=== PATIENT | female | born 1975 | race Caucasian/White ===

== ENCOUNTER 2019-09-17 08:05 | Outpatient (CLI) | payer OTHER, SELFPAY ==
--- NOTE | ~2019-09-17 | MM_ITS ---
EXAMINATION: MM screening [facility] w abhilash HISTORY: Screening TECHNIQUE: Craniocaudal and mediolateral oblique 3-D tomosynthesis images were obtained and synthetic 2-D images were generated. CAD analysis was submitted and interpreted. COMPARISON: Comparison to multiple prior studies sequentially, with oldest reviewed study dated 11/24. BREAST PARENCHYMAL COMPOSITION: There are scattered areas of fibroglandular density. FINDINGS: There is no evidence of suspicious mass, calcification, or architectural distortion to sugg est malignancy in either breast. There has been no suspicious interval change. IMPRESSION: 1. No mammographic evidence of malignancy. 2. Recommend routine screening mammography in one year. BI-RADS Category 1: Negative Reviewed, dictated and finalized at location A.
== END 2019-09-17 08:06 | disposition home or self-care (01) ==
PROVIDERS: PCP Family Medicine; Visit Provider Obstetrics & Gynecology
DX: Z12.31 Encounter for screening mammogram for malignant neoplasm of breast (principal)
CPT/HCPCS: 77063; 77067

== ENCOUNTER 2020-09-22 08:26 | Outpatient (CLI) | payer OTHER, SELFPAY ==
--- NOTE | ~2020-09-22 | MM_ITS ---
EXAMINATION: MM screening [facility] w abhilash HISTORY: Screening mammogram TECHNIQUE: Craniocaudal and mediolateral oblique 3-D tomosynthesis images were obtained and synthetic 2-D images were generated. CAD analysis was submitted and interpreted. COMPARISON: 09/13/2019, 06/12/2018, 12/03/2016 bilateral digital screening mammogram examinations 12/20/2016 diagnostic right digital mammogram BREAST PARENCHYMAL COMPOSITION: There are scattered areas of fibroglandular density. FINDINGS: There is no evidence of suspicious mass, calcification, or architectural distortion to sugg est malignancy in either breast. There has been no suspicious interval change. IMPRESSION: 1. No mammographic evidence of malignancy. 2. Recommend routine screening mammography in one year. BI-RADS Category 1: Negative Reviewed, dictated and finalized at location A.
== END 2020-09-22 08:27 | disposition home or self-care (01) ==
LOC: ANHIMG 08:29
PROVIDERS: PCP Family Medicine; Visit Provider Obstetrics & Gynecology
DX: Z12.31 Encounter for screening mammogram for malignant neoplasm of breast (principal)
CPT/HCPCS: 77063; 77067

== ENCOUNTER 2023-02-12 13:42 | Outpatient (CLI) | payer OTHER, SELFPAY ==
--- NOTE | ~2023-02-12 | MM_ITS ---
EXAMINATION: MM screening [facility] w abhilash HISTORY: Screening mammogram TECHNIQUE: Craniocaudal and mediolateral oblique 3-D tomosynthesis images were obtained and synthetic 2-D images were generated. CAD analysis was submitted and interpreted. COMPARISON: 09/22/2020, 09/13/2019, 06/12/2018 bilateral screening mammogram examinations BREAST PARENCHYMAL COMPOSITION: There are scattered areas of fibroglandular density. FINDINGS: There is no evidence of suspicious mass, calcification, or architectural distortion to sugg est malignancy in either breast. There has been no suspicious interval change. IMPRESSION: 1. No mammographic evidence of malignancy. 2. Recommend routine screening mammography in one year. BI-RADS Category 1: Negative Reviewed, dictated and finalized at location A. [employer]
== END 2023-02-12 13:43 | disposition home or self-care (01) ==
LOC: ANHIMG 13:44
PROVIDERS: PCP Family Medicine; Visit Provider Family Medicine
DX: Z12.31 Encounter for screening mammogram for malignant neoplasm of breast (principal)
CPT/HCPCS: 77063; 77067

== ENCOUNTER 2025-01-12 09:00 | Outpatient (CLI) | payer OTHER, SELFPAY ==
--- NOTE | ~2025-01-12 | MM_ITS ---
EXAMINATION: MM screening albertina BI w abhilash HISTORY: Screening TECHNIQUE: Craniocaudal and mediolateral oblique 3-D tomosynthesis images were obtained and synthetic 2-D images were generated. CAD analysis was submitted and interpreted. COMPARISON: Comparison to multiple prior studies sequentially, with oldest reviewed study dated 12/03/2016. BREAST PARENCHYMAL COMPOSITION: Not dense: There are scattered areas of fibroglandular density. FINDINGS: There is no evidence of suspicious mass, calcification, or architectural distortion to suggest malignancy in either breast. There has been no suspicious interval change. IMPRESSION: 1. No mammographic evidence of malignancy. 2. Recommend routine screening mammography in one year. BI-RADS Category 1: Negative Reviewed, dictated and finalized at location [facility] [employer] [facility]
--- OUTSIDE RECORDS SUMMARY | 2025-01-12 11:25 | XMS_ITS | Data Portability ---
Author Organization [facility] Address [address] [place] [address] [place] [address] Assessment Encounter Date Assessment Date Assessment LastModified by Organization Details LastModified Time 08/11/2024 08/11/2024 Annual gynecological exam performed. Patient will come back in a year unless there are new symptoms. [email or web address] Not available 08/11/2024 11:54:07 Plan of Treatment Reminders Order Date Submit Date Provider Last Modified By Organization Details Last Modified Time Details Appointments None recorded. Lab pap, IG + HR HPV - HPV regardless but if HPV is positive need subtyping 16,18/45 2024 025 [facility] (Lab), [address], [place], [address], 5 18:07:14 Referral None recorded. Procedures None recorded. Surgeries None recorded. Imaging MAMMO, screening, digital, bilateral [address] [facility], [address], [address], [place], [address], 5 10:40:36 Medication Orders None recorded. Patient TargetsNo targets recorded. Patient InstructionsNo instructions recorded. Reason for Referral None Reported. Results Created Date Observation Date Name Description Value Unit Range Abnormal Flag Note LastModifiedBy Organization Detail LastModifiedTime 08/12/1908/11/2024 IMAGE GUIDE D PAP AND HPV REGAR DLESS image guided Pap, HPV regardless of Pap result SEE RESULT S BELOW CASE REPOR T: Cytol ogy Gynec ologi elsi Repor t Case: [id number] Autho landon elizabet Provi shauna: Dermo dy, Ursula , ANP, COMBINATION MAN Colle cted: 08/11 1144 Order ing Locat ion: [place] [facility] Recei ramone: 08/12 0223 First Barbara n: Joellen Reyes Speci men: Screromeo atkins Pap - Image d, Cervi x STATE MENT OF ADEQU ACY: Satis facto ry for evalu ation Trans forma tion zone compo nent prese nt ----- ----- ----- ----- ----- ----- ----- ----- ----- ----- ----- ----- ----- ----- ----- ----- ----- ---- FINAL DIAGN OSIS: Negat paula for Intra epith elial Ofe [place] or Maureen henry (NIL) . Elect tatiana rudolph by Joellen Reyes on 2024 at 1702 CDT ----- ----- ----- ----- ----- ----- ----- ----- ----- ----- ----- ----- ----- ----- ----- ----- ----- ---- HPV RESUL TS: HPV mRNA E6/E7 : No HPV mRNA Detec mylene NOTE: This high risk HPV mRNA assay detec ts fourt een high- risk HPV types (16, 18, 31, 33, 35, 39, 45, 51, 52, 56, 58, 59, 66, 68) witho ut diffe renti ation . COMME NT: This speci men was revie wed by a Cytot echno logis t and/o r Patho logis t (as indic ated in this repor t) after evalu ation using the Thinp rep Imagi ng Syste m. CLINI ELSI INFOR MATIO N: Menst rual Statu s: LMP (if appli cable ): Clini elsi Histo ry/Pr eviou s Pap: Type of Neopl [place]ol[place] (if appli cable ): Signi fican t Clini elsi Findi ngs: Other Histo ry: Hormo daryl (if appli cable ): PAP EDUCA HEATHER L NOTE: The Pap Test is a scree wilbert test with an inher ent false negat paula rate. Liqui d-bas ed sampl ing may decre ase, but will not elimi aaron, false negat paula resul ts. A negat paula resul t does not precl ude the prese nce and/o r devel opmen t of disea se, since the prese nce of abnor mal cells in the sampl e depen ds on the locat ion of the lesio n and sampl ing techn ique. Adelina nued regul ar scree wilbert is the best metho d of cance r preve ntion . If repor mylene cytol ogic findi ng do not corre late with physi elsi and/o r histo rical findi ngs, furth er inves tigat ion is recom ashley d, as clini jaime warra nted. Not Available [facility] (Lab) [address] [facility], [place], [address], 08/12/2024 18:07:14 Result Notes None recorded. 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;Recorded Elsewhere: No Locatio n: [facility] rce: EHR Chroni c: N Practice ID: [id number] Billa ble Time: 08:15:00 AM Not Available [facility] 0 17:01:00 Menstruat ion finding Active 2013 Menorrhagi a;Recorded Elsewhere: No Locatio n: [facility] rce: EHR Chroni c: N Practice ID: [id number] Billa ble Time: 08:15:00 AM Not Available [facility] 0 17:01:01 test negative [id number] Active 2013 examinatio n or test, negative result;Rec orded Elsewhere: No Locatio n: [facility] rce: EHR Chroni c: N Practice ID: [id number] Billa ble Time: 10:30:00 AM Not Available [facility] 0 17:01:00 Dysfuncti onal uterine bleeding Active 2013 Unspecifie d disorders of menstruati on and other abnormal bleeding from female genital tract;Mario rded Elsewhere: No Locatio n: [facility] rce: EHR Chroni c: N Practice ID: 0001 Billa ble Time: 04:00:00 PM Not Available [facility] 0 17:01:01 Uses IUD (intraute rine device) contracep tion [id number] Active 2013 Surveillan ce of intrauteri ne contracept paula device;Rec orded Elsewhere: No Locatio n: [facility] rce: EHR Chroni c: N Practice ID: 0001 Billa ble Time: 04:00:00 PM Not Available [facility] 0 17:01:01 Screening for malignant neoplasm of rectum Active 2016 Encounter for screening for malignant neoplasm of rectum;Rec orded Elsewhere: No Locatio n: [facility] rce: EHR Chroni c: N Practice ID: 0001 Billa ble Time: 01:00:00 PM Not Available [facility] 0 17:01:[address] Concept Active 2016 Encntr for general adult medical exam w/o abnormal findings;R ecorded Elsewhere: No Locatio n: [facility] rce: EHR Chroni c: N Practice ID: [id number] Billa ble Time: 01:00:00 PM Not Available [facility] 0 17:01:[address] Concept Active 2016 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) w/o abn findings;R ecorded Elsewhere: No Locatio n: [facility] rce: EHR Chroni c: N Practice ID: [id number] Billa ble Time: 01:00:00 PM Not Available [facility] 0 17:01:01 Evaluatio n finding Active 2016 Oth abn and inconclusi ve findings on dx imaging of breast;Rec orded Elsewhere: No Locatio n: [facility] rce: EHR Chroni c: N Practice ID: 0001 Billa ble Time: 09:05:51 AM Not Available [facility] 0 17:01:00 Removal of intrauter ine device Active 2018 Encounter for removal of intrauteri ne contracept paula device;Rec orded Elsewhere: No Locatio n: [facility] rce: EHR Chroni c: N Practice ID: 0001 Billa ble Time: 03:00:00 PM Not Available [facility] 0 17:01:01 Insertion of intrauter ine contracep tive device Active 2018 Encounter for insertion of intrauteri ne contracept paula device;Rec orded Elsewhere: No Locatio n: [facility] rce: EHR Chroni c: N Practice ID: 0001 Billa ble Time: 02:00:00 PM Not Available [facility] 0 17:01:00 Contracep tive sheath status [id number] Active 2018 Encounter for routine checking of IUD;Record ed Elsewhere: No Locatio n: [facility] rce: EHR Chroni c: N Practice ID: 0001 Billa ble Time: 09:15:00 AM Not Available [facility] 0 17:01:00 Problem Notes None recorded. Procedures Surgical History Date Name Laterality Status Provider Name and Address Organization Details Recorded Time 4 Colonoscopy completed [facility] 08/11/2024 12:03:05 8 Tubal Ligation completed [facility] 08/11/2024 12:03:22 Imaging Results None recorded. Procedure Notes None recorded. Medical Equipment None Reported. Allergies No known drug allergies Medications Name Sig Start Date Stop Date Status Note LastModified by Organization Details LastModified Time amoxicill in 500 mg capsule TAKE 1 CAPSULE BY MOUTH TWICE A DAY FOR 10 DAYS 08/11 completed Not Available Not Available Not Available Mirena 21 mcg/24 hr (up to 8 years) 52 mg intrauter ine device insert 1 kit by vaginal route every 1 for 5 months 2024 active Prescrib ed Elsewher e: No Locat ion: [facility] By: jacobo Roldan ncounter DateTime : 06/03/19 19 12:04:37 PM Not Available Not Available Not Available atorvasta tin 20 mg tablet TAKE 1 TABLET BY MOUTH EVERY DAY active Not Available Not Available No t Available lisinopri l 10 mg-hydroc hlorothia zide 12.5 mg tablet TAKE 1 TABLET BY MOUTH EVERY DAY active Not Available Not Available No t Available albuterol sulfate HFA 90 mcg/actua tion aerosol inhaler INHALE 2 PUFFS EVERY 6 HOURS NEEDED FOR SHORTNES S OF BREATH. 08/11 completed Not Available Not Available Not Available Vitamin D2 1,250 mcg (50,000 unit) capsule take 1 capsule (20558IJ ITS) by oral route every week 09/02 completed Prescrib ed Elsewher e: No Locat ion: [facility] By: deb Roldan ncounter DateTime : 06/10/19 13 10:25:49 AM Not Available Not Available Not Available timolol maleate 0.5 % eye drops INSTILL ONE DROP IN BOTH EYES TWICE DAILY (12 HRS APART) active Not Available Not Available No t Available Vitals Date Recorded Body height Body mass index (BMI) Body weight Systolic And Diastolic Provider Name and Address Organization Details Last Updated DateTime 08/11/2024 162.56 cm 43.5 kg/m2 962823.03 g 124/87 mm[Hg] Rosie Mcwilliams [facility] 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 08/11/2024 12:02:41 Are You Blind Or Do You Have Difficulty Seeing? No [email or web address] Information n ot available 08/11/2024 What Is Your Level Of Caffeine Consumption? Occasional [email or web address] Information not available 08/11/2024 How Much Tobacco Do You Chew? None [email or web address] Information not available 08/11/2024 In The 14 Days Before Symptom Onset, Have You Had Close Contact With A Laboratory-confirm ed COVID-19 While That Case Was Ill? No [email or web address] Information n ot available 08/11/2024 In The 14 Days Before Symptom Onset, Have You Had Close Contact With A Person Who Is Under Investigation For COVID-19 While That Person Was Ill? No [email or web address] Information not available 08/11/2024 Have You Been To An Area Known To Be High Risk For COVID-19? No [email or web address] Information not available 08/11/2024 Are You Deaf Or Do You Have Serious Difficulty Hearing? No [email or web address] Information not available 08/11/2024 What Type Of Diet Are You Following? REGULAR [email or web address] Information n ot available 08/11/2024 What Is The Highest Grade Or Level Of School You Have Completed Or The Highest Degree You Have Received? [id number] [email or web address] Information not available 08/11/2024 Are There Any Guns Present In Your Home? Yes [email or web address] Information not available 08/11/2024 Do You Use Protection During Sex? No Information not available 08/11/2024 Do You Use Your Seat Belt Or Car Seat Routinely? Yes [email or web address] Information not available 08/11/2024 Are You Sexually Active? Yes [email or web address] Information not available 08/11/2024 Do You Have Smoke And Carbon Monoxide Detectors In Your Home? Yes Information not available 08/11/2024 How Much Tobacco Do You Smoke? No [email or web address] Information not available 08/11/2024 Do You Use Sunscreen Routinely? No Information not available 08/11/2024 Have You Used IV Drugs? No [email or web address] Information not available 08/11/2024 Do You Have Difficulty Walking Or Climbing Stairs? No [email or web address] Information not available 08/11/2024 Sex: Unknown Functional Status Question Answer Note LastModified by Organizat ion Details LastModified Time Do you use any illicit or recreational drugs? No [email or web address] Information not available 08/11/2024 What is your level of alcohol consumption? Occasional [email or web address] Information not available 08/11/2024 Are you currently employed? Yes Information not available 08/11/2024 Are you able to walk independently without assistance or assistive devices? YESWOREST [email or web address] Information not available 08/11/2024 Are you able to care for yourself independently? 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 No [email or web address] Information not available 08/11/2024 What is your exercise level? Occasional Information not available 08/11/2024 Mental Status Question Answer Note LastModified by Organization D etails LastModified Time Do you feel stressed (tense, restless, nervous, or anxious, or unable to sleep at night)? [id number] [email or web address] Information not available 08/11/2024 Family History Relationship Description Onset Age of this Age Resolved Age Notes LastModified by Organization Details LastModified Time Mother Malignant neoplasm of uterus Not available 2024 12:02:29 Medical History Condition Response Allergies (Food, seasonal, environmental ) N Other N Breast Cancer N Drug/Latex Allergies/Reactions N Blood Transfusion N Dermatologic Disorders N Lung Disease N Defects or Inherited Disease N Breast Problem N Gestational Diabetes N Hematologic disorders N Anesthesia Complications N History of STI N Deep Vein Thrombosis N Polycystic ovary syndrome N Anxiety Disorder N Autoimmune disease N Arthritis N Infertility N Polyps N Acid Reflux (GERD) N History of abnormal pap N Cancer N Stroke N Varicosities N Neurologic/Epilepsy N Endometriosis N High Cholesterol N Headaches N Fibromyalgia N Kidney Disease N Heart Problems N Kidney or Bladder Problems N Thyroid Problems N GI Problems N Eating Disorder N Anemia N Art (IVF or FET) N Psychiatric Illness N Ovarian Cancer N Diabetes N Pulmonary (TB, Asthma) N Hepatitis/Liver Disease N No Past Medical History N Eczema N Urinary Tract Infection N Abuse/Domestic Violence N Asthma N Trauma/Violence N Depression/ depression N Heart Disease N Pre-Eclampsia N Hypertension Y Osteoporosis N Thrombophilias N Gynecological History Statement/Question Response Date of Last Mammogram Date of LMP On BCP's at Conception? N N STIs/STDs N Current Control Method IUD Age at First Child 21 Date of Last Colonoscopy Sexually Active? Y Age of first menstrual cycle 14 Date of Last Pap Smear Sexual Problems? N LMP Unknown N Obstetrics History GPAL:G 4 P 4 0 0 4 Type Value Full Term 4 Living 4 Total 4 Past Encounters Encounter ID Performer Location Encounter Start Date Encounter Closed Date Diagnosis/Indication Diagnosis SNOMED-CT Code Diagnosis ICD10 Code Diagnosis IMO Codes Diagnosis Note [id number] Jonatan Cox MD [facility] [address] [address] 08/11/2024 11:49:35 08/11/2024 12:34:01 [facility] examination [id number] Z01.419 [id number] Annual gynecologi elsi exam performed. Patient will come back in a year unless there are new symptoms. Suggest Calcium with Vitamin D if not eating in diet. Patient advised to get annual flu shot. Recommend yearly physicals and perform monthly breast exams. Genetic testing is available for patients with family history of cancer. Engage in safe sexual practices, use condoms. Encouraged to have daily exercise. Avoid tobacco and illicit drugs, moderation of alcohol. If BMI greater than 25 dietary consult advised. If you have any questions please call or email. mammogram- order given, pt to schedule colon cancer screening - UTD PCP DEXA scan- n/a Pap smear- pap w/ HPV collected laboratory evaluation - PCP STI testing - declined A Mirena IUD prevents for up to 8 years, and also helps with heavy periods for up to 5 years in women who choose an IUD for control. Mirena IUD expires 08/31/2026. Screening mammography 24 [id number] Z12.31 [id number] Health Concerns Section Related Observation LastModified by Organization Detai ls LastModified Time None Recorded Concern Status LastModified by Organization Details LastModified Time None Recorded Advance Directives Directive None Recorded Payers Insurance Date Sequence Insurance Name Policy Number Policy Mukherjee Covered Member ID Mukherjee Member ID Guarantor Name 08/10/2024 1 [facility] [id number] Fior Carmona [id number] Familia Carmona Notes Date Note Type Note Provider Name and Address Organization Details Recorded Time 08/12/19 25 text/htm l Annual GYNReported by PatientHistoryFor history, patient reportsno gynecologic complaints.Genitourinary symptomsFor urinary symptoms, patient reportsno hematuriaandno incontinence. For vulva, patient reportsno genital lesion. For vagina, patient reportsnormal vaginal discharge. For menstrual cycle, (no periods with iud).Breast symptomsFor breast, patient reportsno breast pain,no breast lump, andno nipple discharge.ContraceptionFor current contraception, patient reportssatisfied with current contraceptionandintrauterine device (iud).Endocrine symptomsFor sexual complaints, patient reportsno sexual complaints,no pain during intercourse, andnormal libido. For menopausal symptoms, patient reportsno menopausal symptomsandnormal vaginal lubrication.Psychological symptomsFor psychological symptoms, patient reportsno depression,no anxiety, andno pmdd.Preventative measuresFor preventive measures, patient reportsencourage self breast examination,encourage regular exercise,encourage no tobacco use, andencourage regular mammograms starting age 40. New patient presents to establish care. Rosie carpenter [facility] 08/11/2024 12:31:05 OBGyn Episode Ob Episode Information Episode Created Date Number of Fetuses Patient Bloodtype Patient rh Status Prepregnancy Weight lbs Domestic Partner Domestic Partner Phone Father Name Costing Analyst Status 08/12/19 25 1 CLOSED Fetus Data First Name Last Name Admitted to NICU Weight (g) Sex Living Outcome Pediatric Complications Fetus ID Race Codes Race Delivery Type 4139.02 7 M Full Term [id number] Vaginal Delivery Maxim Calculation Initial Maxim Date Initial Exam Date Initial Exam Provider Initial Ultrasound Date Last Menstrual Period Date Ultra Sound Weeks Gestation 0 Eighteen To Twenty Week Maxim Update Ultra Sound Date Fundal Height At Umbil Quickening Date Ultra Sound Latest Weeks Gestation Final Maxim Confirmed By Final Maxim Confirmed Date Final Maxim Date Ultra Sound Latest Days Gestation 0 0 Menstrual History Last Menstrual Date Menses Monthly On Bcp Conception Prior Menses Frequency Hcg Plus Date Menarche Onset Age Delivery Information Delivery Date Delivery Type Labor Anesthesia Weeks Gestation Incision Type Labor Labor Length Hrs Delivered By Post Complications Tubal Sterilization Discharge Date Comments 8 39 Discharge Information Feeding Method Contraceptive Method Maternal HG B and HCT Levels Ob Episode Information Episode Created Date Number of Fetuses Patient Bloodtype Patient rh Status Prepregnancy Weight lbs Domestic Partner Domestic Partner Phone Father Name Costing Analyst Status 08/12/19 25 1 CLOSED Fetus Data First Name Last Name Admitted to NICU Weight (g) Sex Living Outcome Pediatric Complications Fetus ID Race Codes Race Delivery Type 3855.53 2 F Full Term [id number] Vaginal Delivery Maxim Calculation Initial Maxim Date Initial Exam Date Initial Exam Provider Initial Ultrasound Date Last Menstrual Period Date Ultra Sound Weeks Gestation 0 Eighteen To Twenty Week Maxim Update Ultra Sound Date Fundal Height At Umbil Quickening Date Ultra Sound Latest Weeks Gestation Final Maxim Confirmed By Final Maxim Confirmed Date Final Maxim Date Ultra Sound Latest Days Gestation 0 0 Menstrual History Last Menstrual Date Menses Monthly On Bcp Conception Prior Menses Frequency Hcg Plus Date Menarche Onset Age Delivery Information Delivery Date Delivery Type Labor Anesthesia Weeks Gestation Incision Type Labor Labor Length Hrs Delivered By Post Complications Tubal Sterilization Discharge Date Comments 9 38 Discharge Information Feeding Method Contraceptive Method Maternal HG B and HCT Levels Ob Episode Information Episode Created Date Number of Fetuses Patient Bloodtype Patient rh Status Prepregnancy Weight lbs Domestic Partner Domestic Partner Phone Father Name Costing Analyst Status 08/12/19 25 1 CLOSED Fetus Data First Name Last Name Admitted to NICU Weight (g) Sex Living Outcome Pediatric Complications Fetus ID Race Codes Race Delivery Type 3288.54 2 M Full Term [id number] Vaginal Delivery Maxim Calculation Initial Maxim Date Initial Exam Date Initial Exam Provider Initial Ultrasound Date Last Menstrual Period Date Ultra Sound Weeks Gestation 0 Eighteen To Twenty Week Maxim Update Ultra Sound Date Fundal Height At Umbil Quickening Date Ultra Sound Latest Weeks Gestation Final Maxim Confirmed By Final Maxim Confirmed Date Final Maxim Date Ultra Sound Latest Days Gestation 0 0 Menstrual History Last Menstrual Date Menses Monthly On Bcp Conception Prior Menses Frequency Hcg Plus Date Menarche Onset Age Delivery Information Delivery Date Delivery Type Labor Anesthesia Weeks Gestation Incision Type Labor Labor Length Hrs Delivered By Post Complications Tubal Sterilization Discharge Date Comments 7 39 Discharge Information Feeding Method Contraceptive Method Maternal HG B and HCT Levels Ob Episode Information Episode Created Date Number of Fetuses Patient Bloodtype Patient rh Status Prepregnancy Weight lbs Domestic Partner Domestic Partner Phone Father Name Costing Analyst Status 08/12/19 25 1 CLOSED Fetus Data First Name Last Name Admitted to NICU Weight (g) Sex Living Outcome Pediatric Complications Fetus ID Race Codes Race Delivery Type 3316.66 4704 M Full Term [id number] Vaginal Delivery Maxim Calculation Initial Maxim Date Initial Exam Date Initial Exam Provider Initial Ultrasound Date Last Menstrual Period Date Ultra Sound Weeks Gestation 0 Eighteen To Twenty Week Maxim Update Ultra Sound Date Fundal Height At Umbil Quickening Date Ultra Sound Latest Weeks Gestation Final Maxim Confirmed By Final Maxim Confirmed Date Final Maxim Date Ultra Sound Latest Days Gestation 0 0 Menstrual History Last Menstrual Date Menses Monthly On Bcp Conception Prior Menses Frequency Hcg Plus Date Menarche Onset Age Delivery Information Delivery Date Delivery Type Labor Anesthesia Weeks Gestation Incision Type Labor Labor Length Hrs Delivered By Post Complications Tubal Sterilization Discharge Date Comments 08/02/199 8 39 Discharge Information Feeding Method Contraceptive Method Maternal HG B and HCT Levels
--- OUTSIDE RECORDS SUMMARY | 2025-01-12 11:25 | XMS_ITS | Clinical Summary ---
Author Organization [facility] [place] [facility] lt Address [address] [place] [address] Care Team Providers Care Funeral Pre Arrangement Specialist Name Role Phone Wes Dalal MD Primary Care Provider [phone] Allergies No known active allergies Medications levonorgestrel (MIRENA) IUD 1 each by intrauterine route Active timolol (TIMOPTIC) 0.5 % ophthalmic solution INSTILL 1 DROP IN RIGHT EYE ONCE DAILY EVERY MORNING. 04/02/19 23 Active ibuprofen (ADVIL,MOTRIN) 600 mg tablet Take 1 tablet (600 mg total) by mouth every 6 (six) hours as needed for pain for up to 30 doses 30 tablet 05/01/19 24 Active albuterol HFA (PROVENTIL HFA,VENTOLIN HFA,PROAIR HFA) 90 mcg/actuation inhalerIndications :Viral URI with cough Inhale 2 puffs every 6 (six) hours as needed for shortness of breath 18 g 11/10/19 24 Active atorvastatin (LIPITOR) 20 mg tabletIndications: Mixed hyperlipidemia TAKE 1 TABLET BY MOUTH EVERY DAY 90 tablet 2 08/21/19 25 Active lisinopril-hydroCH LOROthiazide (ZESTORETIC) 10-12.5 mg per tabletIndications: Essential hypertension TAKE 1 TABLET BY MOUTH EVERY DAY 90 tablet 1 09/16/19 25 Active Active Problems Problem Noted Date Diagnosed Date Encounter for breast cancer screening using non-mammogram modality 02/19/2024 Assessment & Plan (02/19/2024 7:23 AM TABLE HAND): Mammogram ordered. 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 Limit red meat and avoid processed meat. Maintain a healthy weight; avoid being overweight. Aim for a normal body mass index (BMI) of 18.5-24.9. Help learning to eat healthier, we can set up appointment with sales agent/furniture assembler. Have an active lifestyle, strive for 30 minutes of moderate exercise 5 times a week and strength or resistance training at least twice a week. Use broad-spectrum (UVA+UVB) sunscreen with SPF 30 or greater, is water resistant, limit time spent in the sun (10 am-4pm), wear hat, wear UV protective clothing, wear sunglasses. Never use a tanning bed. Skin that was irradiated may be more sensitive over your lifetime. Limit alcohol intake, 1 drink per day for a woman and 2 drinks per day for a man. Class 3 severe obesity due t o excess calories with serious comorbidity and body mass index (BMI) of 40.0 to 44.9 in adult 12/25/2021 Assessment & Plan (08/25/2024 9:58 AM CDT): Encourage heart healthy diet. Assessment & Plan (02/19/2024 7:22 AM TABLE HAND): Encouraged heart healthy diet and lifestyle. Advised 150 min/week of aerobic exercise. Assessment & Plan (12/25/2021 10:55 AM CDT): Congratulated on wt loss from 270# in May to now 233#. BMI dropped from 46.4 to 39.99 Has been on Optavia (Medifast) since 09/2021. Doing really good on diet. Reviewed need to lose weight, reviewed health benefits. Reviewed recommendations for daily intake & activity 20-30 minutes/day. Discussed healthy diet and importance of regular physical activity. Encounter for screening mamm ogram for malignant neoplasm of breast 12/25/2021 Assessment & Plan (12/25/2021 10:29 AM CDT): Last mamm=09/22/20. Mammogram order given; will call with results when received. Encouraged to perform monthly SBE. Refused influenza vaccine 04/22/2018 Assessment & Plan (12/25/2021 10:53 AM CDT): Discussed and the patient refuses immunization today. Educated regarding the need to vaccinate for personal protection and to limit the viruses in the community to protect those most vulnerable. Assessment & Plan (05/31/2021 2:09 PM CDT): Discussed and the patient refuses immunization today. Educated regarding the need to vaccinate for personal protection and to limit the viruses in the community to protect those most vulnerable. Assessment & Plan (02/11/2020 2:23 PM TABLE HAND): Discussed and the patient refuses immunization today. Educated regarding the need to vaccinate for personal protection and to limit the viruses in the community to protect those most vulnerable. Mixed hyperlipidemia 04/22/2018 Assessment & Plan (08/25/2024 9:58 AM CDT): Continue atorvastatin. Reviewed lifestyle recommendations. Will have lipid panel today. Will plan accordingly once results are received. Assessment & Plan (02/19/2024 7:22 AM TABLE HAND): Lipid panel ordered. Will continue to monitor. Will refill Atorvastatin. Assessment & Plan (12/25/2021 10:54 AM CDT): 02/07/20 TH=590 HDL=54 TG=83 TML=645 TC/HDL=3.4 08/11/20 GE=563 HDL=53 SU=448 AQB=779 TC/HDL=4.7 05/31/21 DU=021 HDL=51 BL=550 KFP=231 TC/HDL=2.0 YA=091 HDL=34 TG=61 LDL=72 TC/HDL=3 NONHDL=84 Copy of results given to Familia Carmona. Reviewed results at time of appointment. Atorvastatin 20mg daily. Patient should focus on limiting bad fats in the diet and using exercise as a way to improve the lipid status. Secondary prevention. Reviewed medications. Denies any statin Ses. Reviewed diet/exercise recommendations. Reviewed red flags. Assessment & Plan (05/31/2021 2:10 PM CDT): 02/07/20 SA=942 HDL=54 TG=83 QZI=193 TC/HDL=3.4 08/11/20 RC=996 HDL=53 ZQ=997 PDL=568 TC/HDL=4.7 05/31/21 ZV=169 HDL=51 LJ=168 SJV=597 TC/HDL=2.0 Atorvastatin 20mg daily. Great improvement in lipid panel since last checked 08/11/20. Patient should focus on limiting bad fats in the diet and using exercise as a way to improve the lipid status. Secondary prevention. Reviewed medications. Denies any statin Ses. Reviewed diet/exercise recommendations. Reviewed red flags. Assessment & Plan (08/11/2020 9:46 AM CDT): 09/02/18 TQ=992 HDL=61 TG=89 BWL=101 TC/HDL=3.6 02/07/20 LU=015 HDL=54 TG=83 KHU=008 TC/HDL=3.4 08/11/20 Copy of results given to Familia Carmona. Reviewed results at time of appointment. Atorvastatin 10mg daily; increased to 20mg daily. Will recheck/follow up in 3 months. Patient should focus on limiting bad fats in the diet and using exercise as a way to improve the lipid status. Secondary prevention. Reviewed medications. Denies any statin Ses. Reviewed diet/exercise recommendations. Reviewed red flags. Assessment & Plan (02/11/2020 2:22 PM TABLE HAND): 09/02/18 IE=832 HDL=61 TG=89 OUI=172 TC/HDL=3.6 02/07/20 VD=637 HDL=54 TG=83 DGE=580 TC/HDL=3.4 Copy of results given to Familia Carmona. Reviewed results at time of appointment. Patient should focus on limiting bad fats in the diet and using exercise as a way to improve the lipid status. Secondary prevention. Reviewed medications. Denies any statin Ses. Reviewed diet/exercise recommendations. Reviewed red flags. Assessment & Plan (09/07/2018 8:54 AM CDT): Patient should focus on limiting bad fats in the diet and using exercise as a way to improve the lipid status. Copy of lab results given to Mrs Carmona. Reviewed during appt. Secondary prevention. Reviewed medications. Lipid panel ordered; will call w/results when rec'd. Denies any statin Ses. Reviewed diet/exercise recommendations. Reviewed red flags. Assessment & Plan (05/27/2018 4:07 PM CDT): Lipid abnormalities are unchanged. Pharmacotherapy as ordered. Lipids will be reassessed in 6 months. Tolerating Atorvastatin Assessment & Plan (04/22/2018 5:36 PM TABLE HAND): Reviewed labs with patient. She does have a family history of high lipids. Both parents and grandparents have been on lipid lowering medications. Her grandmother did have a stroke in her early 40s. We discussed the plan and it was decided to go ahead and start her on a low-dose statin medication while she continues to work on her weight and diet Lipid abnormalities are worsening. Pharmacotherapy as ordered. Lipids will be reassessed in 3 months. Start Lipitor 10 mg daily at bedtime Essential hypertension 03/25/2018 Assessment & Plan (08/25/2024 9:58 AM CDT): Normotensive. Continue lisinopril/hydrochlorothiazide. Will continue to monitor. Assessment & Plan (02/19/2024 7:21 AM TABLE HAND): Blood pressure stable and well controlled. Will continue to monitor. Will refill Lisinopril-HCTZ. Assessment & Plan (12/25/2021 10:38 AM CDT): lisinopril/hctz 10/12.5mg. Will start taking 1/2 tab & monitoring BP. The blood pressure is under good control. Ideally it should be under 130/80. Continue medications without adjustment. Continue efforts to eat well (4-5 fruits and veggies) daily and exercise for about 30 min nearly every day. Watch salt intake, keeping to less than 2000mg per day. Limit alcohol. Include strategies to cope with stress. Copy of results from 12/20/21 given to Familia Carmona. Reviewed results at time of appointment. Assessment & Plan (06/24/2021 10:04 PM CDT): Switched from lisinopril 5mg to lisinopril/hctz 10/12.5mg daily on 05/31/21. The blood pressure is under good control. Ideally it should be under 130/80. Continue medications without adjustment. Continue efforts to eat well (4-5 fruits and veggies) daily and exercise for about 30 min nearly every day. Watch salt intake, keeping to less than 2000mg per day. Limit alcohol. Include strategies to cope with stress. To make f/u in 6 mos. Sooner if elevating BP readings. Assessment & Plan (05/31/2021 2:09 PM CDT): Switched from lisinopril 5mg to lisinopril/hctz 10/12.5mg daily. Will start today. To make f/u appt in 2-3 weeks. 06/21/21 To continue to monitor her BP at home. Reviewed BP parameters. Reviewed red flags. Assessment & Plan (08/11/2020 7:46 AM CDT): Lisinopril 5mg daily. The blood pressure is under good control. Ideally it should be under 130/80. Continue medications without adjustment. Continue efforts to eat well (4-5 fruits and veggies) daily and exercise for about 30 min nearly every day. Watch salt intake, keeping to less than 2000mg per day. Limit alcohol. Include strategies to cope with stress. Assessment & Plan (02/11/2020 2:22 PM TABLE HAND): Copy of results given to Familia Carmona. Reviewed results at time of appointment. The blood pressure is under good control. Ideally it should be under 130/80. Continue medications without adjustment. Continue efforts to eat well (4-5 fruits and veggies) daily and exercise for about 30 min nearly every day. Watch salt intake, keeping to less than 2000mg per day. Limit alcohol. Include strategies to cope with stress. Assessment & Plan (09/07/2018 8:53 AM CDT): The blood pressure is under good control. Ideally it should be under 130/80. Continue medications without adjustment. Continue efforts to eat well (4-5 fruits and veggies) daily and exercise for about 30 min nearly every day. Watch salt intake, keeping to less than 2000mg per day. Labs ordered today; will contact w/results once received. Assessment & Plan (05/27/2018 5:13 PM CDT): Hypertension is improving with treatment. Stable Continue current treatment regimen. Continue with lisinopril 5 mg daily Continue with healthy diet and exercise Continue to try to lose weight Blood pressure will be reassessed in 3 months. Lifestyle changes can help you control and prevent high blood pressure, even if you're taking blood pressure medication. Here's what you can do: Eat healthy foods. Eat a healthy diet. Try the Dietary Approaches to Stop Hypertension (DASH) diet, which emphasizes fruits, vegetables, whole grains, poultry, fish and low-fat dairy foods. Get plenty of potassium, which can help prevent and control high blood pressure. Eat less saturated fat and trans fat. Decrease the salt in your diet. A lower sodium level -- 1,500 milligrams (mg) a day -- is appropriate for people 51 years of age or older, and individuals of any age who are black or who have hypertension, diabetes or chronic kidney disease. Maintain a healthy weight. Keeping a healthy weight, or losing weight if you're overweight or obese, can help you control your high blood pressure and lower your risk of related health problems. If you're overweight, losing even 5 pounds (2.3 kilograms) can lower your blood pressure. Increase physical activity. Regular physical activity can help lower your blood pressure, manage stress, reduce your risk of several health problems and keep your weight under control. Limit alcohol. Even if you're healthy, alcohol can raise your blood pressure. If you choose to drink alcohol, do so in moderation. For healthy adults, that means up to one drink a day for women of all ages and men older than age 65, and up to two drinks a day for men age 65 and younger. One drink equals 12 ounces of beer, 5 ounces of wine or 1.5 ounces of 80-proof liquor. Don't smoke. Tobacco injures blood vessel wells and speeds up the process of hardening of the arteries. If you smoke, ask your doctor to help you quit. Manage stress. Reduce stress as much as possible. Practice healthy coping techniques, such as muscle relaxation, deep breathing or meditation. Getting regular physical activity and plenty of sleep can help, too. Notify the office for blood pressure greater than 130/80 Assessment & Plan (04/22/2018 5:37 PM TABLE HAND): Hypertension is unchanged. Patient has been working on improving her diet. Unfortunately she has not lost any weight in the last month. Her blood pressure readings at home remain above 130/80. She does have a family history of hypertension. After discussing the risks and benefits of starting blood pressure medicine it was decided that we would go ahead and have her start lisinopril 5 mg once a day. I will have her take a half a tablet for 1 week and then increase to 1 whole tablet daily. Patient is to continue to monitor her blood pressure readings and bring them with her at her 4 week appointment. Medication changes per orders. Blood pressure will be reassessed in 3 months. Start Lisinopril 5 mg daily Lifestyle changes can help you control and prevent high blood pressure, even if you're taking blood pressure medication. Here's what you can do: Eat healthy foods. Eat a healthy diet. Try the Dietary Approaches to Stop Hypertension (DASH) diet, which emphasizes fruits, vegetables, whole grains, poultry, fish and low-fat dairy foods. Get plenty of potassium, which can help prevent and control high blood pressure. Eat less saturated fat and trans fat. Decrease the salt in your diet. A lower sodium level -- 1,500 milligrams (mg) a day -- is appropriate for people 51 years of age or older, and individuals of any age who are black or who have hypertension, diabetes or chronic kidney disease. Maintain a healthy weight. Keeping a healthy weight, or losing weight if you're overweight or obese, can help you control your high blood pressure and lower your risk of related health problems. If you're overweight, losing even 5 pounds (2.3 kilograms) can lower your blood pressure. Increase physical activity. Regular physical activity can help lower your blood pressure, manage stress, reduce your risk of several health problems and keep your weight under control. Limit alcohol. Even if you're healthy, alcohol can raise your blood pressure. If you choose to drink alcohol, do so in moderation. For healthy adults, that means up to one drink a day for women of all ages and men older than age 65, and up to two drinks a day for men age 65 and younger. One drink equals 12 ounces of beer, 5 ounces of wine or 1.5 ounces of 80-proof liquor. Don't smoke. Tobacco injures blood vessel wells and speeds up the process of hardening of the arteries. If you smoke, ask your doctor to help you quit. Manage stress. Reduce stress as much as possible. Practice healthy coping techniques, such as muscle relaxation, deep breathing or meditation. Getting regular physical activity and plenty of sleep can help, too. Notify the office for blood pressure greater than 130/80 Assessment & Plan (03/25/2018 4:12 PM TABLE HAND): Hypertension is newly identified. Weight loss. Pt. Is going to try lifestyle changes for the next 4 weeks then f/u with BP readings Will get labs today and call pt. With results. Blood pressure will be reassessed at the next regular appointment Lifestyle changes can help you control and prevent high blood pressure, even if you're taking blood pressure medication. Here's what you can do: Eat healthy foods. Eat a healthy diet. Try the Dietary Approaches to Stop Hypertension (DASH) diet, which emphasizes fruits, vegetables, whole grains, poultry, fish and low-fat dairy foods. Get plenty of potassium, which can help prevent and control high blood pressure. Eat less saturated fat and trans fat. Decrease the salt in your diet. A lower sodium level -- 1,500 milligrams (mg) a day -- is appropriate for people 51 years of age or older, and individuals of any age who are black or who have hypertension, diabetes or chronic kidney disease. Maintain a healthy weight. Keeping a healthy weight, or losing weight if you're overweight or obese, can help you control your high blood pressure and lower your risk of related health problems. If you're overweight, losing even 5 pounds (2.3 kilograms) can lower your blood pressure. Increase physical activity. Regular physical activity can help lower your blood pressure, manage stress, reduce your risk of several health problems and keep your weight under control. Limit alcohol. Even if you're healthy, alcohol can raise your blood pressure. If you choose to drink alcohol, do so in moderation. For healthy adults, that means up to one drink a day for women of all ages and men older than age 65, and up to two drinks a day for men age 65 and younger. One drink equals 12 ounces of beer, 5 ounces of wine or 1.5 ounces of 80-proof liquor. Don't smoke. Tobacco injures blood vessel wells and speeds up the process of hardening of the arteries. If you smoke, ask your doctor to help you quit. Manage stress. Reduce stress as much as possible. Practice healthy coping techniques, such as muscle relaxation, deep breathing or meditation. Getting regular physical activity and plenty of sleep can help, too. Notify the office for blood pressure greater than 130/80 . Resolved Problems Problem Noted Date Diagnosed Date Resolved Date Class 3 severe obesity due t o excess calories with serious comorbidity and body mass index (BMI) of 45.0 to 49.9 in adult 08/11/2020 Assessment & Plan (06/24/2021 10:04 PM CDT): Reviewed need to lose weight, reviewed health benefits. Reviewed recommendations for daily intake & activity 20-30 minutes/day. Discussed healthy diet and importance of regular physical activity. Assessment & Plan (05/31/2021 2:09 PM CDT): Reviewed need to lose weight, reviewed health benefits. Reviewed recommendations for daily intake & activity 20-30 minutes/day. Discussed healthy diet and importance of regular physical activity. Assessment & Plan (08/11/2020 9:37 AM CDT): Reviewed need to lose weight, reviewed health benefits. Reviewed recommendations for daily intake & activity 20-30 minutes/day. Discussed healthy diet and importance of regular physical activity. Morbid obesity with BMI of 40.0-44.9, adult 02/11/2020 08/11/2020 Assessment & Plan (02/11/2020 2:23 PM TABLE HAND): Reviewed need to lose weight, reviewed health benefits. Reviewed recommendations for daily intake & activity 20-30 minutes/day. Discussed healthy diet and importance of regular physical activity. BMI 38.0-38.9,adult 09/07/2018 02/11/20 20 Assessment & Plan (09/07/2018 8:55 AM CDT): Reviewed need to lose weight, reviewed health benefits. Reviewed recommendations for daily intake & activity 20-30 minutes/day. Discussed healthy diet and importance of regular physical activity. Gastroesophageal reflux dise ase without esophagitis 05/27/2018 08/11/2020 Assessment & Plan (05/27/2018 5:13 PM CDT): Improving with omeprazole Continue Omeprazole GERD Recommend Weight loss for patients with GERD who are overweight. Elevate of the head of the bed in individuals with nocturnal symptoms like cough, hoarseness, throat clearing. This can be achieved either by putting six- to eight-inch blocks under the legs at the head of the bed or a Styrofoam wedge under the mattress. We also suggest a corollary to this recommendation: refraining from assuming a supine position after meals and avoidance of meals two to three hours before bedtime. Dietary modification. Suggest selective elimination of dietary triggers like fatty foods, caffeine, chocolate, spicy foods, food with high fat content, carbonated beverages, and peppermint. Avoid tight-fitting garments to prevent increasing intragastric pressure. Promotion of salivation through oral lozenges/chewing gum to neutralize refluxed acid and increases the rate of esophageal acid clearance. Avoidance of tobacco and alcohol as both reduce lower esophageal sphincter pressure and smoking also diminishes salivation. Try Abdominal breathing exercise to strengthen the ant-reflux barrier of the lower esophageal sphincter. Red flags symptoms include difficulty swallowing, bleeding, anemia, weight loss, and recurrent vomiting. If you have any of these, go to ER Abdominal bloating 04/22/2018 Assessment & Plan (04/22/2018 4:55 PM TABLE HAND): GERD Recommend Weight loss for patients with GERD who are overweight. Elevate of the head of the bed in individuals with nocturnal symptoms like cough, hoarseness, throat clearing. This can be achieved either by putting six- to eight-inch blocks under the legs at the head of the bed or a Styrofoam wedge under the mattress. We also suggest a corollary to this recommendation: refraining from assuming a supine position after meals and avoidance of meals two to three hours before bedtime. Dietary modification. Suggest selective elimination of dietary triggers like fatty foods, caffeine, chocolate, spicy foods, food with high fat content, carbonated beverages, and peppermint. Avoid tight-fitting garments to prevent increasing intragastric pressure. Promotion of salivation through oral lozenges/chewing gum to neutralize refluxed acid and increases the rate of esophageal acid clearance. Avoidance of tobacco and alcohol as both reduce lower esophageal sphincter pressure and smoking also diminishes salivation. Try Abdominal breathing exercise to strengthen the ant-reflux barrier of the lower esophageal sphincter. Red flags symptoms include difficulty swallowing, bleeding, anemia, weight loss, and recurrent vomiting. If you have any of these, go to ER Contraception 11/22/2016 08/11/2020 Immunizations Immunization Administration Dates Next Due Influenza, Unspecified 02/19/2024(Deferr ed: Patient Refused),12/26/2022(Deferred: Patient Refused),11/24/2022(Deferred: Patient Refused),12/25/2021(Deferred: Patient Refused),11/24/2020(Deferred: Patient Refused),11/24/2020(Deferred: Patient Refused),11/24/2020(Deferred: Patient Refused),02/11/2020(Deferred: Patient Refused),11/25/2019(Deferred: Patient Refused),11/25/2019(Deferred: Patient Refused),11/25/2019(Deferred: Patient Refused),02/24/2019(Deferred: Patient Refused),09/07/2018(Deferred: Patient Refused),05/27/2018(Deferred: Patient Refused),04/22/2018(Deferred: Patient Refused),03/25/2018(Deferred: Patient Refused),02/24/2017(Deferred: Patient Refused),02/24/2017(Deferred: Patient Refused),02/24/2017(Deferred: Patient Refused),02/24/2017(Deferred: Patient Refused) Moderna SARS-CoV-2 Monovalen t Vaccination (12+ YRS) 05/15/2020,04/13/2020 Pfizer SARS-CoV-2 Monovalent Vaccination (12+ Yrs) PURPLE 03/02/2021 Surgical History Surgery Date Site/Laterality Comments COLONOSCOPY 04/14/2023 KNEE ARTHROSCOPY Right torn MCL Medical History Medical History Date Comments HTN (hypertension) Hyperlipidemia Family History Relation Name Status Comments Father Alive Mother Alive Social History Tobacco Use Types Packs/Day Years Used Date Smoking Tobacco: Former Cigarettes Q uit: 2003 Smokeless Tobacco: Never Tobacco Cessation:Counseling Given: Not Answered Alcohol Use Standard Drinks/Week Comments Not Currently 0 (1 standard drink = 0.6 oz pur e alcohol) AUDIT-C Answer Date Recorded Q1: How often do you have a drink containing alc ohol? Monthly or less 12/26/2022 Q2: How many drinks containi ng alcohol do you have on a typical day when you are drinking? 3 or 4 12/26/2022 Q3: How often do you have si x or more drinks on one occasion? Never 12/26/2022 PHQ-2 Answer Date Recorded PHQ-2 Total Score (If total score is 3 or more points, staff should administer the PHQ-9) 0 02/19/2024 Personal Safety Answer Date Recorded Have you ever been in or are you currently in a harmful physical or emotional relationship or is someone making you feel afraid or unsafe? Denies 04/30/2023 Comments No Sex and Gender Information Value Date Recorded Sex Assigned at Not on file Legal Sex Female 9:03 AM TABLE HAND Gender Identity Not on file Sexual Orientation Not on file Last Filed Vital Signs Vital Sign Reading Time Taken Comments Blood Pressure 114/70 08/25/2024 9:01 AM CDT Pulse 71 08/25/2024 9:01 AM CDT Temperature 36.7 C (98 F) 08/25/2024 9:01 AM CDT Respiratory Rate 20 08/25/2024 9:01 AM CDT Oxygen Saturation 98% 08/25/2024 9:01 AM CDT Inhaled Oxygen Concentration - - Weight 114.7 kg (252 lb 12.8 oz) 08/25/2024 9:01 AM CDT Height 162.6 cm (5' 4.02) 08/25/2024 9:01 AM CD T Body Mass Index 43.37 08/25/2024 9:01 AM CDT Plan of Treatment Health Maintenance Due Date Last Done Comments Cervical Cancer Screening 1975 DTaP/Tdap/Td Vaccine (1 - Tdap) 05/15/1987 Covid-19 Vaccine (4 - season) 2024 03/02/2021, 05/15/2020, 04/13/2020 Influenza Vaccine (#1) 2024 Breast Cancer Screening-Mammogram 01/24/2025 02/12/2023, 09/22/2020, 09/17/2019, Additional history exists Postponed from 02/13/2024 (Provider's clinical decision) Depression Screening 02/18/2025 02/19/2024, 12/26/2022, 06/25/2022, Additional history exists Regular Well Visit/Exam 18-64 02/18/2025 02/19/2024, 12/26/2022 Colon Cancer Screening-Colonoscopy 04/14/2033 04/14/2023 Hepatitis B Screening Completed 08/25/2024 Hepatitis C Screening Completed 08/25/2024 Pneumococcal vaccine <65 Aged Out No longer eligible based on patient's age to complete this topic Procedures Procedure Name Priority Date/Time Associated Diagnosis Comments HEPATITIS C ANTIBODY Routine 08/25/2024 9:23 AM CDT Encounter for hepatitis C screening test for low risk patient COLONOSCOPY 04/14/2023 7:40 AM TABLE HAND SCREENING MAMMOGRAM BILATERAL W LOVE Schedule Routine, Read Routine (OP Routine) 02/12/2023 Encounter for screening mammogram for malignant neoplasm of breast from Last 3 Months or Most Recently Relevant to Health Maintenance Results * Hepatitis C antibody Blood (08/25/2024 9:23 AM CDT) Hep C Ab Nonreactive Nonreactive Comment: Interpretive Data Nonreactive: Antibodies to HCV not detected. Does NOT exclude the possibility of recent exposure to HCV. Equivocal: Equivocal for HCV antibodies. Supplemental molecular testing will be automatically performed to determine infection status in accordance with current CDC screening recommendations. Reactive: Positive for HCV antibodies. This may represent current or past HCV infection. Supplemental molecular testing will be automatically performed to determine current infection status in accordance with current CDC screening recommendations. Interpretive data was last revised on 2019. Testing performed by: [facility], [address] [place] [address]., [id number] Blood 08/25/2024 9:23 AM CDT 08/25/2024 3:10 PM CDT us Naya Cruz NP LAB MICROBIOLOGY - GENERAL ORDERABLES Final Result [facility] Department [place] [address] * Colonoscopy (04/14/2023 7:40 AM TABLE HAND) Anatomical Region Laterality Modality Other Narrative Procedure Note Boyd Triplett MD - 04/14/2023 7:40 AM CST [facility] Patient Name: Familia Carmona Procedure Date: 04/14/2023 7:40 AM Date of : 1975 Admit Type: Outpatient Age: 47 Gender: Female Attending MD: Boyd Triplett M.D. Room: [facility] ENDOSCOPY ROOM 1 Note Status: Finalized Patient Profile: This is a 47 year old female. No family history of colon cancer. No specific GI complaint Procedure: Colonoscopy Indications: Screening for colorectal malignant neoplasm, Thisis the patient's first colonoscopy Referring MD: Wes Dalal M.D. Providers: Boyd Triplett M.D. Impression: - Overall unremarkable colonoscopy - One 3 mm polyp in the descending colon, removedwith a jumbo cold forceps. Resected and retrieved. - Internal hemorrhoids. Recommendation: - Await pathology results. - Repeat colonoscopy in 8 years for surveillance. - Continue present medications. Medicines: Monitored Anesthesia Care Complications: No immediate complications. Estimated Blood Loss: Estimated blood loss: none. Procedure: Pre-Anesthesia Assessment: - Prior to the procedure, a History and Physicalwas performed, and patient medications and allergieswere reviewed. The patient's tolerance of previous anesthesia was also reviewed. The risks andbenefits of the procedure and the sedation options and risks were discussed with the patient. All questions were answered, and informed consent was obtained. Prior Anticoagulants: The patient has taken noanticoagulant or antiplatelet agents. ASA Grade Assessment: Per anesthesia note and evaluation. After reviewing the risks and benefits, the patient was deemed in satisfactory condition to undergo the procedure. The benefits, risks and alternatives of theprocedure and sedation were discussed and informed consentwas obtained. All questions were answered. Please referto the signed informed consent document in the medical record. The bowel preparation used was Miralax and bisacodyl tablets via split dose instruction. The scope was passed under direct vision. The Pediatric Colonoscope PCF-H190L [id number] was introducedthrough the anus and advanced to the the cecum, identifiedby appendiceal orifice and ileocecal valve. Thequality of the bowel preparation was good. Bowel prep was administered using a split dose. Findings: The perianal and digital rectal examinations were normal. The cecum appeared normal. The rectum, sigmoid colon, transverse colon and ascending colonappeared normal. A small benign-appearing 3 mm polyp was found in the descendingcolon. The polyp was semi-sessile. The polyp was removed with a jumbo cold forceps. Resection and retrieval were complete. Internal hemorrhoids were found during retroflexion. The hemorrhoids were small. Electronically signed by Boyd Triplett M.D. Boyd Triplett M.D. 04/14/2023 9:41:25 AM Number of Addenda: 0 Note Initiated On: 04/14/2023 7:40 AM Procedure Code(s): --- Professional --- 03689, Colonoscopy, flexible; with biopsy, single or multiple Diagnosis Code(s): --- Professional --- Z12.11, Encounter for screening for malignant neoplasm of colon K64.8, Other hemorrhoids D12.4, Benign neoplasm of descending colon CPT copyright 2020 [employer]. All rights reserved. The codes documented in this report are preliminary and upon behavioral consultant reviewmay be revised to meet current compliance requirements. Recognized by the [employer] for promoting quality in endoscopy Boyd Triplett MD ENDOSCOPY PROCEDURES Final Result * SCREENING MAMMOGRAM BILATERAL W LOVE (02/12/2023) Anatomical Region Laterality Modality Breast Bilateral Mammography Naya Cruz NP IMG MAMMO PROCEDURES Final Result from Last 3 Months or Most Recently Relevant to Health Maintenance Insurance [facility] [employer]NA [facility] HMO Advance Directives For more information, please contact: [phone] * Full Code (Latest Code Status on File) Date Activated Date Inactivated Comments 04/14/2023 8:28 AM 04/14/2023 2:56 PM * Full Code Date Activated Date Inactivated Comments 04/14/2023 8:28 AM 04/14/2023 8:28 AM Care Teams Funeral Pre Arrangement Specialist Relationship Specialty Start Date End Date Wes Dalal MD [address] [place] [address] PCP - General 07/10/12
--- OUTSIDE RECORDS SUMMARY | 2025-01-12 11:25 | XMS_ITS | Clinical Summary ---
Author Organization [facility] Address [address] [place] [address] Care Team Providers Care Muck Boss Name Role Phone Wes Dalal MD Primary Care Provider [phone] Source Comments [facility],non-owned Affiliates and Associated Physician Practices is amultiple site organization consisting of ambulatory clinics and hospital sitesin [place], [place], [place] and [place]. This disclosure is being madepursuant to the Care Everywhere program and may not contain all information available regarding this patient. Last updated 17.[facility] Allergies No known active allergies Medications * Be aware that medications may not be up to date on this document. Alwaysverify current medications with the patient. 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 Gender Identity Not on file Sexual Orientation Not on file Last Filed Vital Signs Vital Sign Reading Time Taken Comments Blood Pressure 124/70 06/01/2016 11:22 AM CDT Pulse 118 06/01/2016 11:22 AM CDT Temperature 37.4 C (99.3 F) 06/01/2016 11:22 AM CDT Respiratory Rate 16 06/01/2016 11:22 AM CDT Oxygen Saturation 99% 06/01/2016 11:22 AM CDT Inhaled Oxygen Concentration - - Weight 102.1 kg (225 lb) 06/01/2016 11:22 AM CDT Height 165.1 cm (5' 5) 06/01/2016 11:22 AM CDT Body Mass Index 37.44 06/01/2016 11:22 AM CDT Plan of Treatment Health Maintenance Due Date Last Done Comments COLOGUARD (AGES 45-75) - COL ON CA SCREENING 1975 COLON MONITORING 1975 COLONOSCOPY - COLON CA SCREENING 1976 CT COLONOGRAPHY - COLON CA SCREENING 1975 Colorectal Cancer Screening 1975 FIT - COLON CA SCREENING 1975 FLEX SIG - COLON CA SCREENING 1975 LIPID TESTING 1975 MAMMOGRAM 1975 HIV SCREENING 05/15/1991 HEPATITIS C SCREENING 05/10/1994 DTAP/TDAP/TD VACCINES (1 - Tdap) 05/15/1995 HEPATITIS B VACCINE (1 of 3 - 19+ 3-dose series) 05/15/1995 DEPRESSION SCREENING 02/25/2024 COVID-19 VACCINE (1 - 2023-2 5 season) 2024 INFLUENZA VACCINE (#1) 2024 ZOSTER VACCINE (1 of 2) 2026 HIB VACCINE Aged Out No longer eligi ble based on patient's age to complete this topic HPV VACCINE Aged Out No longer eligi ble based on patient's age to complete this topic MENINGOCOCCAL (Group B) VACC INE SHARED DECISION-MAKING Aged Out No longer eligibl e based on patient's age to complete this topic MENINGOCOCCAL GROUPS A/C/Y/W VACCINE Aged Out No longer eligible b ased on patient's age to complete this topic PNEUMOCOCCAL VACCINE Aged Out No long er eligible based on patient's age to complete this topic Insurance [employer] Care Teams Muck Boss Relationship Specialty Start Date End Date Wes Dalal MD [address] [place] [address] PCP - General Internal Medicine 06/01/16
== END 2025-01-12 09:01 | disposition home or self-care (01) ==
LOC: ANHFOHIMG 09:02
PROVIDERS: PCP Family Medicine; Visit Provider Family Medicine
DX: Z12.31 Encounter for screening mammogram for malignant neoplasm of breast (principal)
CPT/HCPCS: 77063; 77067